=== PATIENT | female | born 1970 | race African-American/Black ===

== ENCOUNTER 2022-11-20 19:45 | Inpatient (IN) | payer OTHER, SELFPAY ==
[2022-11-20] MEDS ORDERED: Guaifenesin DM 100-10/5 ML UDCUP PO PRN (20:36)
[2022-11-20] MEDS ORDERED: Senokot S 8.6-50 MG TAB PO PRN (20:36)
[2022-11-20] MEDS ORDERED: Zolpidem Tartrate 5 MG TAB PO PRN (20:36)
[2022-11-20] MEDS ORDERED: Dextrose 50% Abboject 50 ML SYRINGE SLOW IVP PRN (20:36)
[2022-11-20] MEDS ORDERED: Dextrose 5% in Water 1,000 ML IV PRN (20:36)
[2022-11-20] MEDS ORDERED: Calcium Carbonate 500 MG ChewTAB PO PRN (20:36)
[2022-11-20] MEDS ORDERED: Ondansetron PF 4 MG/2 ML Vial IVP PRN (20:36)
[2022-11-20] MEDS ORDERED: Iron Sucrose Complex 100 MG in Sodium Chloride 0.9% 100 ML IVPB SCH (20:45)
[2022-11-20 21:12] LABS: #Eosinphils 0.1 10x3/uL (0.0-0.5); #Monocytes 0.7 10x3/uL (0.0-1.1); #Neutrophils 3.3 10x3/uL (1.5-8.4); %Basophils 0.7 % (0.0-2.0); %Lymphocytes 32.1 % (18.0-47.0); %Neutrophils 53.9 % (40.0-75.0); Hemoglobin 8.1 g/dL (12.0-15.5); Mean Corpuscular HGB CONC 29.2 g/dL (32.0-36.0); Mean Corpuscular Hemoglobin 19.5 pg (27.0-33.0); Mean Corpuscular Volume 66.6 fl (81.6-98.3); Mean Platelet Volume 9.3 fl (7.4-10.4); Platelet Count 418 10x3/uL (150-450); RBC Distribution Width 29.1 % (11.5-14.5); Red Blood Cell (RBC) Count 4.16 10x6/uL (3.90-5.03); White Blood Cell (WBC) Count 6.1 10x3/uL (3.5-10.5)
[2022-11-20 22:01] LABS: Anisocytosis MODERATE=16-30 cells (100X) (0-5/hpf); Hypochromia MODERATE=16-30 cells (100X) (0-5/hpf); Microcytosis SLIGHT = 6-15 cells (100X) (0-5/hpf); Poikilocytosis SLIGHT = 6-15 cells (100X) (0-5/hpf)
[2022-11-20 22:02] LABS: Target Cells SLIGHT = 2-5 cells (100X) (0-1/hpf)
[2022-11-20 22:03] LABS: Schistocytes SLIGHT = 2-5 cells (100X) (0-1/hpf)
[2022-11-20 22:05] LABS: Platelet Morphology Comment Appears Increased
[2022-11-20] MEDS: Iron, Sodium Ferric Gluconate 125 MG in Sodium Chloride 0.9% 100 ML IVPB SCH (22:10)
[2022-11-20] MEDS: traZODone HCl 50 MG TAB PO SCH (22:14)
[2022-11-21 03:49] LABS: %Basophils 0.4 % (0.0-2.0); %Eosinophils 1.7 % (0.0-6.0); %Lymphocytes 36.8 % (18.0-47.0); %Monocytes 9.6 % (0.0-10.0); %Neutrophils 51.3 % (40.0-75.0); Hemoglobin 7.7 g/dL (12.0-15.5); Mean Corpuscular HGB CONC 29.7 g/dL (32.0-36.0); Mean Corpuscular Hemoglobin 19.6 pg (27.0-33.0); Mean Corpuscular Volume 66.1 fl (81.6-98.3); Platelet Count 382 10x3/uL (150-450); Red Blood Cell (RBC) Count 3.92 10x6/uL (3.90-5.03); White Blood Cell (WBC) Count 4.7 10x3/uL (3.5-10.5)
[2022-11-21 03:50] LABS: #Eosinphils 0.1 10x3/uL (0.0-0.5); #Monocytes 0.5 10x3/uL (0.0-1.1); #Neutrophils 2.4 10x3/uL (1.5-8.4)
[2022-11-21 04:04] LABS: PTT 29.8 sec (22.0-33.0); Prothrombin Time 10.9 sec (9.5-12.1)
[2022-11-21 04:07] LABS: Anion Gap 13 mmol/L (10-20); BUN (Urea Nitrogen) 16 mg/dL (9.8-20.1); Calc. Creatinine Clearance 0 mL/min (70-130); Calcium 8.3 mg/dL (7.8-10.44); Carbon Dioxide 22 mmol/L (22-29); Chloride 109 mmol/L (98-107); Estimated GFR 91; Glucose 98 mg/dL (70-105); Potassium 3.8 mmol/L (3.5-5.1); Sodium 140 mmol/L (136-145)
[2022-11-21 05:36] LABS: Amphetamine Not Detected (NotDetected); Barbiturates Screen Not Detected (NotDetected); Benzodiazepine Screen Not Detected (NotDetected); Cocaine Metabolite Screen Detected (NotDetected); Methadone Not Detected (NotDetected); Methamphetamine Not Detected (NotDetected); Opiate Screen Not Detected (NotDetected); Oxycodone Screen Not Detected (NotDetected); Phencyclidine (PCP) Not Detected (NotDetected); THC/Cannabinoid Screen Detected (NotDetected); Tricyclic Screen Not Detected (NotDetected)
[2022-11-21] MEDS: FLUoxetine HCl 20 MG CAP PO SCH (09:00)
[2022-11-21] MEDS: Aripiprazole 10 MG TAB PO SCH (09:00)
[2022-11-21] MEDS: metFORMIN 500 MG TAB PO SCH (09:00)
[2022-11-21] MEDS: Ferrous Gluconate 324 MG TAB PO SCH (09:00)
[2022-11-21] MEDS ORDERED: Iron, Sodium Ferric Gluconate 125 MG in Sodium Chloride 0.9% 100 ML IVPB SCH (11:00)
[2022-11-21] MEDS: Iron, Sodium Ferric Gluconate 125 MG in Sodium Chloride 0.9% 100 ML IVPB SCH (12:55)
[2022-11-21] MEDS: Acetaminophen 325 MG TAB PO PRN ×2 (12:59→21:30)
[2022-11-21] MEDS: traZODone HCl 50 MG TAB PO SCH (21:31)
[2022-11-22 07:43] VITALS: TEMP 98.5
[2022-11-22] MEDS: metFORMIN 500 MG TAB PO SCH (08:12)
[2022-11-22] MEDS: FLUoxetine HCl 20 MG CAP PO SCH (08:12)
[2022-11-22] MEDS: Ferrous Gluconate 324 MG TAB PO SCH (08:12)
[2022-11-22] MEDS: Aripiprazole 10 MG TAB PO SCH (08:12)
[2022-11-22 11:33] VITALS: BP 95/53
[2022-11-22 13:42] LABS: Hemoglobin 8.8 g/dL (12.0-15.5); Platelet Count 433 10x3/uL (150-450)
== END 2022-11-22 15:27 | disposition home or self-care (01) | DRG 760 ==
LOC: CSHPP 19:45
PROVIDERS: ADMIT Family Medicine Sports Medicine; ATTEND Family Medicine
DX: D25.9 Leiomyoma of uterus, unspecified (principal); D62 Acute posthemorrhagic anemia; I82.412 Acute embolism and thrombosis of left femoral vein; N93.9 Abnormal uterine and vaginal bleeding, unspecified; F31.9 Bipolar disorder, unspecified; F41.9 Anxiety disorder, unspecified; E11.9 Type 2 diabetes mellitus without complications; F17.210 Nicotine dependence, cigarettes, uncomplicated; F12.10 Cannabis abuse, uncomplicated; F14.10 Cocaine abuse, uncomplicated; Z86.711 Personal history of pulmonary embolism; Z79.01 Long term (current) use of anticoagulants; Z79.899 Other long term (current) drug therapy
CPT/HCPCS: 36415; 36416; 80048; 80306; 85014; 85018; 85025; 85049; 85610; 85730; 93970; J2916; J3490